=== PATIENT | female | born 1970 | race Two or more races ===

== ENCOUNTER 2021-06-14 10:55 | Day surgery (SDC) | payer BC ==
[2021-06-13 13:23] VITALS: BMI 21.4
[2021-06-14] MEDS ORDERED: PROPOFOL 20 ML ONE ×4 (11:35→12:01)
[2021-06-14 12:20] VITALS: TEMP 97.5
[2021-06-14 12:53] VITALS: BP 134/82; PULSE 83
== END 2021-06-14 13:30 | disposition home or self-care (01) ==
LOC: FASU-ENDO 10:55
PROVIDERS: ATTEND Internal Medicine Gastroenterology
PROC: 0DJD8ZZ Inspection of Lower Intestinal Tract, Via Natural or Artificial Opening Endoscopic (ICD-10-PCS; principal; 2021-06-14 11:53)
DX: Z12.11 Encounter for screening for malignant neoplasm of colon (principal); K64.1 Second degree hemorrhoids
CPT/HCPCS: 84703